=== PATIENT | male | born 1955 | race Caucasian/White ===

== ENCOUNTER → 2024-03-16 06:46 | Day surgery (SDC) | payer MEDICARE, OTHER, SELFPAY | LOC: GI 06:46 | PROVIDERS: ATTENDING PHYSICIAN Internal Medicine; FAMILY PHYSICIAN Family Medicine | DX: Z12.11 Encounter for screening for malignant neoplasm of colon (principal); K51.50 Left sided colitis without complications; K51.30 Ulcerative (chronic) rectosigmoiditis without complications; K63.89 Other specified diseases of intestine; D12.3 Benign neoplasm of transverse colon; K51.40 Inflammatory polyps of colon without complications | CPT/HCPCS: 45385; 45380; 88305 ==

== ENCOUNTER 2025-05-25 06:39 | Day surgery (SDC) | payer MEDICARE, OTHER, SELFPAY | END 2025-05-25 09:28 | disposition home or self-care (01) | LOC: GI 06:39 | PROVIDERS: ATTENDING PHYSICIAN Internal Medicine; FAMILY PHYSICIAN Family Medicine | DX: K51.90 Ulcerative colitis, unspecified, without complications (principal); D12.6 Benign neoplasm of colon, unspecified; D12.3 Benign neoplasm of transverse colon; K63.5 Polyp of colon; K51.40 Inflammatory polyps of colon without complications | CPT/HCPCS: 45385; 45380; 88305 ==